=== PATIENT | female | born 1990 | race Caucasian/White ===

== ENCOUNTER 2017-03-23 01:16 | Emergency (ER) | payer BC, OTHER ==
[~2017-03-23 01:16] MED LIST: IBUP600 PO; OXYC1SOL5 PO; PREN0.01 PO
--- NOTE | 2017-03-23 02:02 | PD ---
HPI Chief Complaint LOF Travel History International Travel<30 Days: No Contact w/Intl Traveler<30Days: No Known Affected Area: No History of Present Illness HPI 26-year-old 011, IUP at 37.6 care complicated by prior delivery The patient presents complaining of some moisture after coughing and leaking a small amount of fluid when she coughed at about 10 PM. She reports the fluid was clear but she denies any large gush of fluid or continued leaking. She reports occasional contractions that also started about 10 PM she reports they occur about every half hour. There are no aggravating or alleviating factors and no attempted treatments. She reports good movement. She denies any vaginal bleeding. Weeks Gestation: 37 Para: 1 : 3 Miscarriage: 1 History Past Medical History Medical History: Denies Significant Hx Obstetric History Obstetric History 011 Full-term delivery 1 SAB 1 Past Surgical History Narrative Surgical delivery 1 Family History Narrative Family History Breast cancer Social History Alcohol Use: No Tobacco Use: No Substance Abuse: No Allergies-Medications (Allergen,Severity, Reaction): Coded Allergies: No Known Allergies (Unverified , 10/16/15) Home Meds Active Scripts Oxycodone W/ Acetaminophen (Oxycodone/Acetaminophen 5-325 mg/5Ml) 5 mg/325 mg Tab, 2 TAB PO Q4H Y for PAIN SCALE 6 TO 10, #30 TAB Prov:Susana Guy MD 10/18/15 Ibuprofen (Motrin 600 Mg Tab) 600 Mg Tab, 600 MG PO Q6H Y for CRAMPING, #30 TAB Prov:Susana Guy MD 10/18/15 Reported Medications Multivit/Min/Fol Ac/Iron/Pren ( Vit ( Plus)) Tab, 1 TAB PO DAILY, TAB 10/15/15 Review of Systems Except as stated in HPI: all other systems reviewed are Neg Physical Exam Narrative GENERAL: Well-nourished, well-developed patient. SKIN: Warm and dry. HEAD: Normocephalic and atraumatic. EYES: No scleral icterus. No injection or drainage. ENT: No nasal drainage noted. Mucous membranes pink. Airway patent. NECK: Supple, trachea midline. No JVD. CARDIOVASCULAR: Regular rate and rhythm without murmurs, gallops, or rubs. RESPIRATORY: Breath sounds equal bilaterally. No accessory muscle use. BREASTS: Deferred ABDOMEN/GI: Abdomen soft, non-tender, bowel sounds present, no rebound, no guarding Gravid GENITOURINARY: External Genitalia: intact and normal in appearance. Normal BUS. No obvious ROM. Grossly normal rugated, no cervical or vaginal masses, physiologic appearing discharge. SVE 3/60/-2/posterior. Amniosure negative Uterine Contractions: Irregular f FHT's: heart tones in the 130s with moderate long-term variability, good accelerations, no decelerations. Category 1 heart rate tracing and a reactive NST EXTREMITIES: No cyanosis or edema. BACK: Nontender without obvious deformity. NEUROLOGICAL: Awake and alert. Motor and sensory grossly within normal limits. Five out of 5 muscle strength in all muscle groups. Normal speech. Psychiatric: Grossly normal memory and affect Musculoskeletal: Grossly normal range of motion, gait, muscle strength MDM Plan Assessment/plan: 1. IUP at 37.6 2. LOF: No evidence of PROM with negative amniosure and no obvious ROM on exam. Strict R Guajardo precautions 3. No evidence of active labor, labor precautions 4. History of prior delivery: Patient is planning for repeat delivery 5. well-being: Reassuring testing with reactive NST and category 1 heart rate tracing. FHR reassuring and appropriate for gestational age. kick counts daily 6. Urine dip negative 7. Follow up with primary OB in 2-3 days or sooner as needed Diagnosis Diagnosis: Primary Impression: 37 weeks gestation of Additional Impression: No leakage of amniotic fluid into vagina Disposition: 01 DISCHARGE HOME Condition: Good Anita Garcia MD Mar 23, 2017 02:02
== END 2017-03-23 02:16 | disposition home or self-care (01) ==
LOC: HOBED 01:16
DX: O26.893 Other specified pregnancy related conditions, third trimester (principal); R05 Cough; Z3A.37 37 weeks gestation of pregnancy
CPT/HCPCS: 84112; 99283

== ENCOUNTER 2017-03-28 09:59 | Inpatient (IN) | payer OTHER ==
[~2017-03-28] VITALS: Ht 165.1 cm; Wt 73.0 kg
[2017-03-28] VITALS (8 sets, daily range): BP systolic 105–135; BP diastolic 56–75; PULSE 64–89; RESP 16–18; TEMP 97.5–98.1; O2SAT 96–100
[2017-03-28 11:54] LABS: AUTOMATED NEUTROPHIL # 5.4 TH/MM3 (1.8-7.7); BASOPHIL % 0.2 % (0.0-2.0); EOSINOPHIL # 0.1 TH/MM3 (0-0.4); EOSINOPHIL % 1.1 % (0.0-4.0); HEMATOCRIT 31.8 % (35.0-46.0); HEMOGLOBIN 10.9 GM/DL (11.6-15.3); LYMPH % 23.4 % (9.0-44.0); LYMPHOCYTE # 1.8 TH/MM3 (1.0-4.8); MEAN CELL VOLUME 81.1 FL (80.0-100.0); MEAN CORPUSCULAR HEMOGLOBIN 27.8 PG (27.0-34.0); MEAN CORPUSCULAR HGB CONC 34.3 % (32.0-36.0); MEAN PLATELET VOLUME 8.6 FL (7.0-11.0); MONO % 5.5 % (0.0-8.0); MONOCYTE # 0.4 TH/MM3 (0-0.9); NEUT % 69.8 % (16.0-70.0); PLATELET COUNT 252 TH/MM3 (150-450); RED BLOOD COUNT 3.92 MIL/MM3 (4.00-5.30); RED CELL DISTRIBUTION WIDTH 13.6 % (11.6-17.2); WHITE BLOOD COUNT 7.8 TH/MM3 (4.0-11.0)
[2017-03-28] MEDS ORDERED: OXYTOCIN 10 UNIT/ML AMP IV ONE (12:00)
[2017-03-28] MEDS ORDERED: ONDANSETRON HCL 4 MG/2 ML VIAL IV ONE (12:00)
[2017-03-28 12:02] LABS: BILIRUBIN, URINE NEG (NEG); BLOOD, URINE NEG (NEG); GLUCOSE,URINE NEG (NEG); KETONE, URINE NEG (NEG); MUCUS URINE FEW /lpf (OCC); NITRITE,URINE NEG (NEG); SQUAMOUS EPITHELIAL CELL URINE 1 /hpf (0-5); URINE COLOR LIGHT-YELLOW (YELLW/STRAW); URINE LEUKOCYTE ESTERASE NEG (NEG)
[2017-03-28] MEDS ORDERED: CITRIC ACID-SODIUM CITRATE LIQ 30 ML UDC PO SCH (12:15)
[2017-03-28] MEDS ORDERED: ceFAZolin 2 GM PREMIX 50 ML IV SCH (12:15)
[2017-03-28] MEDS ORDERED: LACTATED RINGER'S 1000 ML IV ONE (12:15)
[2017-03-28] MEDS: LACTATED RINGER'S 1000 ML IV SCH (12:16)
[2017-03-28] MEDS ORDERED: MORPHINE SULFATE PF 5 MG/10 ML VIAL ONE (13:19)
[2017-03-28] MEDS ORDERED: KETOROLAC TROMETHAMINE 60 MG/2 ML (IM) VIAL IM PRN (13:30)
[2017-03-28] MEDS ORDERED: SODIUM CHLORIDE 0.9% FLUSH 10 ML FLUSH IV FLUSH PRN (13:30)
[2017-03-28] MEDS ORDERED: OXYTOCIN 30 UNITS-500ML PREMIX 500 ML IV ONE (13:30)
[2017-03-28] MEDS ORDERED: ONDANSETRON HCL 4 MG/2 ML VIAL IV PUSH PRN (13:30)
[2017-03-28] MEDS ORDERED: oxyCODONE/ACETAMINOPHEN 5 MG/325 MG TAB PO PRN ×2 (13:30)
[2017-03-28] MEDS ORDERED: SIMETHICONE 80 MG CHEWABLE TAB PO PRN (13:30)
[2017-03-28] MEDS ORDERED: OXYTOCIN 30 UNITS-500ML PREMIX 500 ML ONE (15:01)
[2017-03-28] MEDS ORDERED: KETOROLAC TROMETHAMINE 30 MG/ML (IVP) VIAL ONE (16:07)
[2017-03-28] MEDS ORDERED: LACTATED RINGER'S 1000 ML INJ 1,000 ML IV SCH (18:29)
[2017-03-28] MEDS: SODIUM CHLORIDE 0.9% FLUSH 10 ML FLUSH IV FLUSH SCH (21:00)
[2017-03-28] MEDS ORDERED: OXYTOCIN 30 UNITS-500ML PREMIX 500 ML IV PRN (23:30)
[2017-03-29] VITALS: BP 119/76; PULSE 66; RESP 18; TEMP 97.4; O2SAT 98
[2017-03-29 04:00] VITALS: BP 116/69; PULSE 68; RESP 18; TEMP 98; O2SAT 97
[2017-03-29] MEDS: IBUPROFEN 600 MG TAB PO PRN ×3 (04:29→18:40)
[2017-03-29 05:52] LABS: AUTOMATED NEUTROPHIL # 9.3 TH/MM3 (1.8-7.7); BASOPHIL % 0.1 % (0.0-2.0); EOSINOPHIL % 0.2 % (0.0-4.0); HEMATOCRIT 27.2 % (35.0-46.0); LYMPH % 11.5 % (9.0-44.0); LYMPHOCYTE # 1.3 TH/MM3 (1.0-4.8); MEAN CELL VOLUME 82.4 FL (80.0-100.0); MEAN CORPUSCULAR HEMOGLOBIN 27.2 PG (27.0-34.0); MEAN PLATELET VOLUME 8.9 FL (7.0-11.0); MONO % 4.1 % (0.0-8.0); MONOCYTE # 0.5 TH/MM3 (0-0.9); NEUT % 84.1 % (16.0-70.0); PLATELET COUNT 196 TH/MM3 (150-450); RED CELL DISTRIBUTION WIDTH 13.9 % (11.6-17.2); WHITE BLOOD COUNT 11.1 TH/MM3 (4.0-11.0)
[2017-03-29 08:00] VITALS: BP 103/65; PULSE 70; RESP 16; TEMP 97.9; O2SAT 99
--- NOTE | 2017-03-29 12:33 | HHI.OB ---
Subjective Post Operative Day: 1 Remarks Pt doing well with breast feeding, good pain control, ambulating well Objective Vitals/I&O Vital Signs Date Time Temp Pulse Resp B/P (MAP) Pulse Ox O2 Delivery O2 Flow Rate FiO2 03/29/17 08:00 97.9 03/29/17 08:00 70 16 103/65 (78) 99 03/29/17 04:00 98.0 68 18 116/69 (85) 97 03/29/17 00:00 66 18 119/76 (90) 98 03/29/17 00:00 97.4 03/28/17 20:00 97.9 72 16 106/68 (81) 96 03/28/17 17:00 98.1 70 18 124/68 (86) 03/28/17 15:45 65 18 126/68 (87) 100 03/28/17 15:30 64 114/68 (83) 03/28/17 15:30 18 100 03/28/17 15:15 72 18 128/56 (80) 98 03/28/17 15:00 72 18 134/75 (94) 03/28/17 15:00 98 03/28/17 14:45 75 18 135/63 (87) 99 03/28/17 14:30 97.5 89 18 105/57 (73) 98 Result Diagram: 03/29/17 0506 Objective Remarks GENERAL: Well-nourished, well-developed patient. CARDIOVASCULAR: Regular rate and rhythm without murmurs, gallops, or rubs. RESPIRATORY: Breath sounds equal bilaterally. No accessory muscle use. ABDOMEN/GI: Abdomen soft, non-tender, bowel sounds present. Incision: Clean, dry and intact. Fundus: Firm, non-tender at umbilicus. GENITOURINARY: Light to moderate bleeding. EXTREMITIES: No cyanosis or edema, non-tender, without signs of DVT. Medications and IVs Current Medications Medications (Trade) Dose Ordered Sig/Bess Route Start Time Stop Time Status Last Admin Lactated Ringer's 1,000 ml @ 150 mls/hr Q6H40M IV 03/28/17 12:15 03/28/17 12:16 (Bicitra Liq) 30 ml NEUROSURGERY RESEARCH DIRECTOR PO 03/28/17 12:15 03/31/17 12:14 03/28/17 12:16 Cefazolin Sodium/ Dextrose 50 ml @ 100 mls/hr NEUROSURGERY RESEARCH DIRECTOR IV 03/28/17 12:15 03/31/17 12:14 03/28/17 12:16 Lactated Ringer's 1,000 ml @ 100 mls/hr Q10H IV 03/28/17 18:29 03/29/17 14:28 03/28/17 20:16 Oxytocin 500 ml @ 100 mls/hr UNSCH X1 PRN IV 03/28/17 23:30 03/29/17 23:29 (NS Flush) 2 ml BID IV FLUSH 03/28/17 21:00 03/28/17 21:00 (NS Flush) 2 ml UNSCH PRN IV FLUSH 03/28/17 13:30 (Mylicon Chew) 80 mg QID PRN PO 03/28/17 13:30 (Motrin) 600 mg Q6H PRN PO 03/28/17 13:30 03/29/17 10:42 (Toradol Inj) 30 mg Q6H PRN IM 03/28/17 13:30 03/29/17 13:29 (Percocet 5-325 Mg) 1 tab Q4H PRN PO 03/28/17 13:30 (Percocet 5-325 Mg) 2 tab Q4H PRN PO 03/28/17 13:30 (M-M-R Ii Inj) 0.5 ml ONCE ONCE SQ 03/29/17 16:00 03/29/17 16:01 (Boostrix Inj) 0.5 ml ONCE ONCE IM 03/29/17 16:00 03/29/17 16:01 (Zofran Inj) 4 mg Q6H PRN IV PUSH 03/28/17 13:30 Assessment/Plan Assessment and Plan POD # 1 s/p repeat c/s doing well, routine pp care Jaclyn Miguel MD Mar 29, 2017 12:33
[2017-03-29] MEDS ORDERED: MEASLES, MUMPS, RUBELLA VACCINE 0.5 ML VIAL SQ ONE (16:00)
[2017-03-29] MEDS ORDERED: DIPHTH/TETANUS/ACEL PERTUSSIS (BOOSTER) 0.5 ML VIAL/PFS IM ONE (16:00)
[2017-03-29 20:00] VITALS: BP 109/71; PULSE 79; RESP 18; TEMP 98.4; O2SAT 100
[2017-03-30] MEDS: IBUPROFEN 600 MG TAB PO PRN ×4 (01:00→19:29)
[2017-03-30 08:00] VITALS: BP 109/63; PULSE 86; RESP 16
--- NOTE | 2017-03-30 08:06 | HHI.OB ---
Subjective Post Operative Day: 2 Remarks PPD # 2 s/p repeat c/s doing well, no n/v, good pain control, ambulating well Objective Vitals/I&O Vital Signs Date Time Temp Pulse Resp B/P (MAP) Pulse Ox O2 Delivery O2 Flow Rate FiO2 03/29/17 20:00 79 109/71 (84) 03/29/17 20:00 98.4 18 100 Result Diagram: 03/29/17 0506 Objective Remarks GENERAL: Well-nourished, well-developed patient. CARDIOVASCULAR: Regular rate and rhythm without murmurs, gallops, or rubs. RESPIRATORY: Breath sounds equal bilaterally. No accessory muscle use. ABDOMEN/GI: Abdomen soft, non-tender, bowel sounds present. Incision: Clean, dry and intact. Fundus: Firm, non-tender at umbilicus. GENITOURINARY: Light to moderate bleeding. EXTREMITIES: No cyanosis or edema, non-tender, without signs of DVT. Medications and IVs Current Medications Medications (Trade) Dose Ordered Sig/Bess Route Start Time Stop Time Status Last Admin Lactated Ringer's 1,000 ml @ 150 mls/hr Q6H40M IV 03/28/17 12:15 03/28/17 12:16 (Bicitra Liq) 30 ml ENERGY CONSULTANT PO 03/28/17 12:15 03/31/17 12:14 03/28/17 12:16 Cefazolin Sodium/ Dextrose 50 ml @ 100 mls/hr ENERGY CONSULTANT IV 03/28/17 12:15 03/31/17 12:14 03/28/17 12:16 (NS Flush) 2 ml BID IV FLUSH 03/28/17 21:00 03/28/17 21:00 (NS Flush) 2 ml UNSCH PRN IV FLUSH 03/28/17 13:30 (Mylicon Chew) 80 mg QID PRN PO 03/28/17 13:30 (Motrin) 600 mg Q6H PRN PO 03/28/17 13:30 03/30/17 07:23 (Percocet 5-325 Mg) 1 tab Q4H PRN PO 03/28/17 13:30 (Percocet 5-325 Mg) 2 tab Q4H PRN PO 03/28/17 13:30 (Zofran Inj) 4 mg Q6H PRN IV PUSH 1/29/18 13:30 Assessment/Plan Assessment and Plan POD #2 s/p repeat c/s doing well, routine pp care Jaclyn Miguel MD Mar 30, 2017 08:06
[2017-03-30] MEDS: SODIUM CHLORIDE 0.9% FLUSH 10 ML FLUSH IV FLUSH SCH ×2 (09:00→21:00)
[2017-03-30 19:39] VITALS: BP 116/86; PULSE 94; RESP 16; TEMP 99.3
[2017-03-31] MEDS: IBUPROFEN 600 MG TAB PO PRN ×3 (01:55→15:05)
[2017-03-31 08:00] VITALS: BP 120/78; PULSE 80; RESP 14; TEMP 98.1
[2017-03-31] MEDS: SODIUM CHLORIDE 0.9% FLUSH 10 ML FLUSH IV FLUSH SCH (09:00)
--- NOTE | 2017-03-31 10:13 | MP ---
cc: FLORENCIA STRINGER DATE OF SURGERY 03/28/17 PREOPERATIVE DIAGNOSIS Intrauterine at 39 weeks gestation with previous section POSTOPERATIVE DIAGNOSIS Intrauterine at 39 weeks gestation with previous section PROCEDURE Repeat low transverse section TERMINAL GAUGER Dr. Quin Garnica ANESTHESIA Spinal FINDINGS IN SURGERY A viable female weighing 7 pounds 12 ounces without Apgars of 9 and 9. Normal-appearing tubes and ovaries bilaterally. BLOOD LOSS 800 mL. COMPLICATIONS None PROCEDURE IN DETAIL After proper consents were obtained, blood had been typed and screened, the patient was taken to the operating room where a spinal anesthetic was placed. She was then placed in the dorsal position, sterilely prepped and draped and a Weeks catheter was placed. At this time, she was sterilely prepped and draped. Once we established an adequate level of spinal anesthetic, I used a sharp knife to do a revision of a prior Pfannenstiel skin incision. This was then carried down to the fascia using the Bovie cautery. Fascia was nicked in the midline, extended superior laterally on each side. We then bluntly dissected the muscles off of the fascia exposing the peritoneum which was grasped with two hemostats, entered sharply with the Metzenbaum scissors and extended superiorly inferiorly paying close attention to the bladder. Bladder blade was placed. Bladder flap was developed. Bladder blade was replaced. We made a transverse incision in the lower uterine segment. This was extended using the finger fracture technique. Rupture of membranes revealed clear fluid, controlled delivery of the vertex followed. Bulb suction to the oropharynx and nares and then we delivered the body. We had delayed cord clamping for about 40 seconds. We then clamped the cord, cut in between and the was handed to the team in attendance, a viable female 7 pounds 12 ounces with Apgars 9 and 9. At this time, cord blood sample was obtained. Placenta was removed and the uterus was exteriorized, wiped clean of clots and debris. The uterine incision was closed with a #1 chromic suture starting at each apex meeting in the midline in a running interlocking fashion with excellent hemostasis noted. Irrigation was performed of the abdominopelvic cavity. Hemostasis was assured. The uterus was placed back into the abdominal cavity. We reapproximated the muscles using a #1 chromic suture x1. We then went ahead and closed the fascia using a 0 Vicryl starting at each apex meeting in the midline in a running fashion. Irrigation was performed at the subcu. Hemostasis achieved with the Bovie cautery. space was closed with interrupted sutures of 3-0 Vicryl. We then closed the skin with cisco. All sponge, lap, needle count were correct x3. MD NEY Dupont/ /4:15 PM /10:06 AM
--- NOTE | 2017-03-31 13:06 | HHI.DS ---
Admission Date Mar 28, 2017 at 09:59 Admitting Diagnosis Diagnosis: Vaginal Delivery: Normal : Male Pt Condition on Discharge: Good Discharge Disposition: Discharge Home Discharge Instructions Diet Instructions: As Tolerated, No Restrictions Activities You Can Perform: Pelvic Rest Jaclyn Miguel MD Mar 31, 2017 13:06
--- NOTE | 2017-03-31 13:06 | HHI.DCPOC ---
Discharge Care Plan Report Symptoms to Your Doctor -Temperature above 100.5 degrees -Redness, of incision or excessive or foul smelling drainage -Unusual pain or calf pain -Increased vaginal bleeding -Painful or difficulty urinating -Feelings of extreme sadness or anxiety after 2 weeks Goals to Promote Your Health * To prevent worsening of your condition and complications * To maintain your health at the optimal level Directions to Meet Your Goals Take your medications as prescribed Follow your dietary instruction Follow activity as directed Ensure plenty of rest for recovery Drink fluids for hydration Keep your appointments as scheduled Take your immunizations and boosters as scheduled If your symptoms worsen call your PCP, if no PCP go to Urgent Care Center or Emergency Room Smoking is Dangerous to Your Health. Avoid second hand smoke Call the 24-hour crisis hotline for domestic abuse at Jaclyn Miguel MD Mar 31, 2017 13:06
[2017-03-31] MEDS: LACTATED RINGER'S 1000 ML IV SCH (13:35)
== END 2017-03-31 15:15 | disposition home or self-care (01) | DRG 766 ==
LOC: H2EB 09:59 → H1EA 16:19
PROVIDERS: ADMIT Obstetrics & Gynecology; ATTEND Obstetrics & Gynecology
PROC: 10D00Z1 Extraction of Products of Conception, Low, Open Approach (ICD-10-PCS; principal; 2017-03-28)
DX: O34.211 Maternal care for low transverse scar from previous cesarean delivery (principal); Z37.0 Single live birth; Z3A.39 39 weeks gestation of pregnancy
CPT/HCPCS: 59025; 80307; 81001; 85025; 86850; 86900; 86901; 90715; J0690; J1885; J2274; J2405; J2590; J7120